=== PATIENT | female | born 1950 | race Caucasian/White ===

== ENCOUNTER → 2016-08-30 | Outpatient (CLI) | payer BC, OTHER ==
[~2016-08-30] VITALS: Ht 170.2 cm; Wt 135.2 kg
[~2016-08-30] MED LIST: ASPIR 8181 MG PO; FLEXERIL PO; L-LYSINE1000 M1 PO; LOSARTAN-HCTZ1 EAC1 PO; METOPROLOL SUCC50 MG PO; MOBIC7.5 MG PO; NEURONTIN 300300 M1 PO; PREDNISONE 20 M20 MG PO; TRAMADOL 50 MG50 MG PO; VITAMIN C1000 MG PO; VITAMIN D1000 UNI1 PO
--- NOTE | ~2016-08-30 | HPC ---
[facility] [place] [address] PAIN MANAGEMENT CONSULTATION Name: MED DELGADO [id number] Admission: 08/30/16 Attend Phys: Saturnino Parsons DO Discharge: Date of : 54 Report #: [id number] THIS REPORT FOR: //name// CC: Saturnino Barrios MD DATE OF SERVICE: 08/30/2016 DATE OF SERVICE: 08/30/2015 REFERRING PHYSICIAN: Yan Barrios M.D. CHIEF COMPLAINT: Low back pain, right lower extremity pain and paresthesias. HISTORY OF PRESENT ILLNESS: As you know, patient is a 66-year-old female, who has been referred to our service for lumbar radiculopathy. The patient indicates pain began spontaneously 08/09/2016. She states that she began to experience increasing back pain after episode of vomiting. She sought evaluation through her primary care physician, who started the patient on medication management. Unfortunately, this was ineffective at controlling pain. She subsequently returned to the Emergency Department where imaging was obtained. It was found the patient was suffering from a suspected lumbar radiculopathy secondary to changes at the L5-S1 level. She was then referred to our clinic for evaluation. She indicates today pain is continuous, describes the pain as crushing, numbness and tingling. Places current pain score at 8/10, daily average at 8/10, worst the pain has been is 10/10. The patient states pain is exacerbated with standing, improves with lying down and repositioning. She has been referred to our service after discussed treatment options for lumbar radiculopathy. PAST MEDICAL HISTORY: 1. Hypertension. 2. Morbid obesity. 3. Osteoarthritis. PAST SURGICAL HISTORY: 1. Toe extraction in 1963, cholecystectomy in 1974, tonsillectomy, adenoidectomy. 2. section x 2. 3. Lap band procedure. 4. Shoulder surgery. SOCIAL HISTORY: The patient denies tobacco, alcohol or IV illicit drug use. She is retired, not receiving workman's compensation nor is she trying to obtain disability benefits. She is accompanied by her , who was present in room [address] [address] PAIN MANAGEMENT CONSULTATION Name: MED DELGADO Room #: REG [facility] Luann.#: [id number] Admission: 08/30/16 Attend Phys: Saturnino Parsons DO Discharge: Date of : 54 Report #: [id number]. REVIEW OF SYSTEMS: Positive for nocturia, incontinence, dribbling to urine, morbid obesity, low back pain, right lower extremity pain, hypertension, osteoarthritis. All other review of systems negative per 12-point review of systems other than those listed in history of present illness. Pain impact score 59/70 indicating moderate to severe interference of daily activities secondary to pain. ALLERGIES: SULFA. CURRENT MEDICATIONS: Tramadol 50 mg 1-2 tabs every 6 hours p.r.n. for pain, meloxicam 7.5 mg twice a day, gabapentin 300 mg 3 times a day, prednisone 20 mg twice a day, cyclobenzaprine 10 mg 3 times a day, Lysine 1000 mg per day, cholecalciferol 1000 units per day, ascorbic acid 1000 mg once a day, aspirin 81 mg per day, losartan/hydrochlorothiazide 100/25 mg dose 1 tab p.o. every day, metoprolol 50 mg once a day. IMAGING DATA: MRI of the lumbar spine obtained on 08/20/2016 shows a small protrusion contained extrusion within the right lateral recess at L5-S1 contacting the descending right S1 nerve root. Mild to moderate left and mild right lateral recess stenosis. Mild lateral recess stenosis at L3-L4, there is moderate narrowing at the level of L5-S1. A CT of the lumbar spine obtained on 08/11/2016 shows [id number] spinal canal stenosis, L5-S1 and L4-5. PHYSICAL EXAMINATION: VITAL SIGNS: Blood pressure 105/78, pulse is 90, respiratory rate 16, unlabored. The patient 95% on room air. Height 5 feet 5 inch tall, weight 298 pounds, BMI calculated at 49.6. GENERAL: Well developed, well nourished, well hydrated, morbidly obese 66-year-old female appearing her stated age. She is placing current pain score at 8/10. HEENT: Normocephalic, atraumatic. Pupils equal, round, reactive to light. Extraocular muscles are intact. Sclerae nonicteric without injection. NEUROLOGIC: Cranial nerves 2-12 grossly intact. LUNGS: Clear. No wheeze, rhonchi or rales. CARDIOVASCULAR: Regular. No appreciable gallop or rub. ABDOMEN: Soft, obese, nontender, nondistended, normal active bowel sounds. EXTREMITIES: Show no clubbing, no cyanosis. There is 1+ lower extremity nonpitting edema. MUSCULOSKELETAL: Seated straight leg raising is negative. Supine straight leg raising positive right. Fabere's test is negative. Gait is antalgic favoring right lower extremity over left. Station is normal. Muscle bulk and tone equal [address] [address] PAIN MANAGEMENT CONSULTATION Name: MED DELGADO Room #: REG BREA Hutchinson#: [id number] Admission: 08/30/16 Attend Phys: Saturnino Parsons DO Discharge: Date of : 54 Report #: [id number] and symmetrical, deconditioning noted bilaterally. Intact to light touch from L1 through S2 dermatomes. Deep tendon reflexes are symmetrical at patella and Achilles, diminished bilaterally. Muscle bulk and tone equal and symmetrical in lower extremities. Babinskis is negative. Ankle clonus negative. ASSESSMENT: 1. Symptomatic lumbar radiculopathy. 2. Severe spinal stenosis of lumbar spine. 3. Displacement of lumbar intervertebral disk with radiculopathy. 4. Lumbosacral spondylosis with radiculopathy. 5. Lumbar degeneration. 6. Chronic intractable pain. PLAN: 1. The patient has been referred to our service for evaluation and treatment for lumbar radiculopathy. It appears the patient is suffering from lumbar radicular symptom related to the extrusion at the L5-S1 level. This appears to be a source of the patient's acute onset of pain after the incident of vomiting in July. She does have moderate to severe spinal stenosis at L4-L5 and severe stenosis at L5-S1, both contributing to the patient's ongoing pain issues. We discussed with the patient the treatment options available for her lumbar radicular symptoms secondary to the pathology found in the MRI. The treatments would include the following: We discussed physical therapy, stretching exercises, core strengthening and a very concerted effort at weight loss. We discussed medication management with addition of a neuropathic pain medication remaining on low dose opioid for pain control. This patient has had problems with opioids in the past. We also discussed epidural injections under fluoroscopic guidance and surgical options in regards to decompressive fusions. After reviewing the risks and benefits of all proposed treatment options, the patient chose to begin with an epidural injection under fluoroscopic guidance. The patient was advised risks and benefits of a lumbar epidural injection. These risks include but are not necessarily limited to bleeding, bruising, infection, worsening pain, no relief of pain, also risk of temporary or permanent muscle weakness, temporary or permanent nerve damage, possible paralysis and . The patient states understood and wished to proceed. 2. No medication changes were made at today's visit. The patient will continue current medical therapies previously prescribed. 3. The patient will return to our clinic in 2 weeks in followup to discuss efficacy of epidural injections and determine if a repeat injection might be necessary versus transition to oral medications or potentially surgical options. 4. We wished to thank the referring physician for the opportunity to see this patient in consultation. We will keep you apprised of her response to treatment, as we address her ongoing pain. Again, we wish to thank you for the opportunity to participate [place] [address] PAIN MANAGEMENT CONSULTATION Name: MED DELGADO Room #: REG CLJosé Luis Hutchinson#: [id number] Admission: 08/30/16 Attend Phys: Saturnino Parsons DO Discharge: Date of : 54 Report #: [id number] PROCEDURE NOTE DESCRIPTION OF PROCEDURE: Right L5-S1 paramedian epidural steroid injection under fluoroscopic guidance. This is the first procedure of the first series that the patient is undergoing. After obtaining written consent, the patient was taken back to the fluoroscopy suite, placed in a prone position with pillow under the abdomen to decrease lumbar lordosis. The skin overlying the lumbosacral area was then prepped and draped in aseptic fashion. The L5-S1 vertebral interspace was then identified by AP fluoroscopy. The skin and subcutaneous tissue overlying the target site of injection was anesthetized with 3 mL 1% lidocaine. A 20-guage 6-inch Tuohy needle was then advanced under fluoroscopic guidance towards the epidural space using a right paramedian approach. The epidural space was identified using loss of resistance to air technique. After negative aspiration for heme or cerebrospinal fluid, a total of 1 mL of Omnipaque was injected. A lumbar epidurogram was confirmed using both AP and lateral fluoroscopy. After negative aspiration for heme or cerebrospinal fluid, 5 mL of solution containing 2 mL 40 mg per mL 80 mg total triamcinolone, 3 mL of lidocaine 1% was injected in increments. Contrast spread was noted posterior epidural space. The needle was then retracted approximately half way and needle tract flushed with 1 mL of 1% lidocaine. Needle was then removed. There were no apparent sensory or motor deficits in the lower extremity following the procedure. A sterile bandage was placed over the injection site. The heart rate, pulse, oximetry and blood pressure were continuously monitored after the procedure. There were no apparent complications. The patient tolerated the procedure well and was carefully escorted to the recovery room in stable condition. There were no apparent complications. After meeting discharge criteria, the patient was then discharged home. <ELECTRONICALLY SIGNED> By: Saturnino Parsons DO 09/06/16 [id number] Saturnino Parsons DO /nt
[2016-08-30 14:11] VITALS: BP 105/78
== END | disposition home or self-care (01) ==
LOC: PAIN 13:30
DX: M51.16 Intervertebral disc disorders with radiculopathy, lumbar region (principal); M48.06 Spinal stenosis, lumbar region; M47.27 Other spondylosis with radiculopathy, lumbosacral region; G89.29 Other chronic pain; I10 Essential (primary) hypertension; E66.09 Other obesity due to excess calories; M19.90 Unspecified osteoarthritis, unspecified site; Z90.49 Acquired absence of other specified parts of digestive tract; Z98.890 Other specified postprocedural states